=== PATIENT | male | born 1950 | race Two or more races ===

== ENCOUNTER 2019-09-11 13:18 | Emergency (ER) | payer OTHER ==
[~2019-09-11] VITALS: Ht 165.1 cm; Wt 92.5 kg
[2019-09-11] MEDS ORDERED: ATORVASTATIN CA10 MG PO (13:32)
[2019-09-11] MEDS ORDERED: ATACAND HCT 161 EACH PO (13:32)
== END 2019-09-11 18:58 | disposition home or self-care (01) ==
LOC: ER 13:18
DX: N40.1 Benign prostatic hyperplasia with lower urinary tract symptoms (principal); R33.8 Other retention of urine